=== PATIENT | male | born 1945 | race Caucasian/White ===

== ENCOUNTER 2017-02-21 08:57 | Emergency (ER) | payer MEDICARE ==
[~2017-02-21] VITALS: Ht 172.7 cm; Wt 113.4 kg
[~2017-02-21 08:57] MED LIST: BP MED; CEPH500C3 PO; CHOLESTEROL MED; TYLE3 PO
[2017-02-21 09:07] VITALS: BP 155/80; PULSE 77; RESP 16; TEMP 98.7; O2SAT 97
[2017-02-21] MEDS ORDERED: ZETI10TA5 PO (09:30)
[2017-02-21] MEDS ORDERED: LOSA50TA2 PO (09:30)
[2017-02-21] MEDS ORDERED: SIMV40TA PO (09:30)
[2017-02-21] MEDS ORDERED: CLIN1CAP5 PO (09:49)
--- NOTE | 2017-02-21 09:54 | PD ---
HPI Chief Complaint: Oral / Dental Pain or Problem Time Seen by Provider: 09:43 Travel History International Travel<30 days: No Contact w/Intl Traveler<30days: No Traveled to known affect area: No History of Present Illness HPI This patient complains of pain and swelling in his gums in the left lower jaw. Duration 2 days. Severity is mild to moderate. No fever. PFSH Past Medical History Hx Anticoagulant Therapy: No Cardiovascular Problems: Yes (HTN) High Cholesterol: Yes Diabetes: No Diminished Hearing: No Hypertension: Yes Tetanus Vaccination: < 5 Years Past Surgical History Appendectomy: Yes (AGE 6) Social History Alcohol Use: Yes (OCC) Tobacco Use: No Substance Use: No Allergies-Medications (Allergen,Severity, Reaction): Coded Allergies: No Known Allergies (Verified , 02/21/17) Reported Meds & Prescriptions Reported Meds & Active Scripts Active Clindamycin (Clindamycin HCl) 150 Mg Cap 300 Mg PO Q8HR Reported Losartan-Hydrochlorothiazide 50-12.5 Mg Tab 1 Tab PO DAILY Simvastatin 40 Mg Tab 40 Mg PO HS Zetia (Ezetimibe) 10 Mg Tab 10 Mg PO DAILY Review of Systems General / Constitutional: No: Fever Cardiovascular: No: Chest Pain or Discomfort Respiratory: No: Cough Gastrointestinal: No: Vomiting Physical Exam Narrative NECK: Symmetrical appearance, midline trachea. No mass or crepitus. Thyroid without enlargement, tenderness, or mass. SKIN: Focused skin assessment reveals no rash or ulcers. Skin is warm and dry. Palpation shows no induration or nodules. Oral cavity: Uvula midline. Gingiva on the left lower area and low center is erythematous and inflamed. No distinct pus pockets. No fluctuance or drainage Data Data Last Documented VS Vital Signs Date Time Temp Pulse Resp B/P Pulse Ox O2 Delivery O2 Flow Rate FiO2 02/21/17 09:07 98.7 77 16 155/80 97 MDM Medical Decision Making Medical Screen Exam Complete: Yes Emergency Medical Condition: Yes Medical Record Reviewed: Yes Differential Diagnosis Gingivitis, abscess, dental pain Narrative Course I have reviewed the patient's electronic medical record. I prescribed clindamycin Recommend dental follow-up Diagnosis Primary Impression: Gingivitis, acute Patient Instructions: General Instructions Departure Forms: Tests/Procedures Additional Instructions: The patient was advised to follow up with their physician and return if they worsen. Med/Other Pt SpecificInfo: Prescription(s) given Scripts Clindamycin 150 Mg [id number] Mg PO Q8HR #42 CAP Ref 0 Prov:Christiano Brown MD 02/21/17 Disposition: 01 DISCHARGE HOME Condition: Stable Christiano Brown MD February 21, 2017 09:53
== END 2017-02-21 10:00 | disposition home or self-care (01) ==
LOC: PHEFT 08:57
DX: K05.00 Acute gingivitis, plaque induced (principal); I10 Essential (primary) hypertension; E78.00 Pure hypercholesterolemia, unspecified; Z86.79 Personal history of other diseases of the circulatory system
CPT/HCPCS: 99282